=== PATIENT | female | born 1985 | race Hispanic/Latino ===

== ENCOUNTER 2018-11-17 12:12 | Outpatient (CLI) | payer OTHER | END 2018-11-17 12:13 | disposition home or self-care (01) | LOC: EKG 12:12 | PROVIDERS: ATTEND Student in an Organized Health Care Education/Training Program | DX: O16.4 Unspecified maternal hypertension, complicating childbirth (principal); Z13.6 Encounter for screening for cardiovascular disorders; I34.0 Nonrheumatic mitral (valve) insufficiency | CPT/HCPCS: 93005; 93010; 93306 ==

== ENCOUNTER 2018-12-10 11:10 | Emergency (ER) | payer OTHER ==
[2018-12-10] MEDS ORDERED: Acetaminophen 500 MG TAB ONE (12:56)
== END 2018-12-10 13:09 | disposition home or self-care (01) ==
LOC: ERS 11:10
DX: O99.89 Other specified diseases and conditions complicating pregnancy, childbirth and the puerperium (principal); S39.012A Strain of muscle, fascia and tendon of lower back, initial encounter; Z3A.23 23 weeks gestation of pregnancy
CPT/HCPCS: 99283

== ENCOUNTER 2019-03-16 18:29 | Inpatient (IN) | payer OTHER ==
[2019-03-16] MEDS ORDERED: Promethazine HCl 25 MG/ML VIAL IM PRN (19:19)
[2019-03-16] MEDS ORDERED: Ondansetron PF 4 MG/2 ML Vial IVP PRN (19:19)
[2019-03-16] MEDS ORDERED: Dextrose 5% in Water 1,000 ML IV PRN (19:19)
[2019-03-16] MEDS ORDERED: Carboprost 250 MCG/ML AMP IM PRN (19:19)
[2019-03-16] MEDS ORDERED: HYDROcodone/Acetaminophen 5/325 mg Tablet PO PRN (19:19)
[2019-03-16] MEDS ORDERED: Ibuprofen 800 MG TAB PO PRN (19:19)
[2019-03-16] MEDS ORDERED: Diphenoxylate HCl/Atropine Tablet PO PRN (19:19)
[2019-03-16] MEDS ORDERED: Zolpidem Tartrate 5 MG TAB PO PRN (19:19)
[2019-03-16] MEDS ORDERED: Dextrose 50% Abboject 50 ML SYRINGE SLOW IVP PRN (19:19)
[2019-03-16] MEDS ORDERED: NS / Oxytocin 40 units/1000ml 1,000 ML IV PRN (19:19)
[2019-03-16] MEDS ORDERED: hydrALAZINE 20 MG/ML VIAL SLOW IVP PRN (19:19)
[2019-03-16] MEDS ORDERED: Lidocaine 1% (PF) 30 ML VIAL SC PRN (19:19)
[2019-03-16] MEDS ORDERED: Acetaminophen 500 MG TAB PO PRN (19:19)
[2019-03-16] MEDS ORDERED: Butorphanol Tartrate 1 MG/ML VIAL SLOW IVP PRN (19:19)
[2019-03-16] MEDS ORDERED: Misoprostol 200 MCG TAB PR PRN (19:19)
[2019-03-16] MEDS ORDERED: Penicillin G Potassium 5 MILL.UNITS in Sodium Chloride 0.9% 100 ML IVPB SCH (19:30)
[2019-03-16] MEDS: Lactated Ringer's 1,000 ML IV SCH (20:00)
[2019-03-16 20:25] LABS: Hemoglobin 12.1 g/dL (12.0-16.0); Mean Corpuscular HGB CONC 35.9 g/dL (32.0-36.0); Mean Corpuscular Volume 83.6 fL (78.0-98.0); Mean Platelet Volume 10.7 fL (7.4-10.4); Platelet Count 172 thou/uL (130-400); RBC Distribution Width 12.4 % (11.5-14.5); Red Blood Cell (RBC) Count 4.04 mill/uL (4.20-5.40); White Blood Cell (WBC) Count 10.8 thou/uL (4.8-10.8)
[2019-03-16 20:44] LABS: ALT (SGPT) 17 U/L (8-55); AST (SGOT) 14 U/L (5-34); Albumin 3.3 g/dL (3.5-5.0); Alkaline Phosphatase 156 U/L (40-150); Anion Gap 13 mmol/L (10-20); BUN (Urea Nitrogen) 10 mg/dL (7.0-18.7); Bilirubin, Total 0.2 mg/dL (0.2-1.2); Calc. Creatinine Clearance 0 mL/min (70-130); Calcium 9.4 mg/dL (7.8-10.44); Carbon Dioxide 18 mmol/L (22-29); Chloride 107 mmol/L (98-107); Estimated GFR-MDRD 87; Globulin 4.2 g/dL (2.4-3.5); Glucose 112 mg/dL (70-105); Potassium 4.4 mmol/L (3.5-5.1); Protein, Total 7.5 g/dL (6.0-8.3); Sodium 134 mmol/L (136-145)
[2019-03-16 21:01] LABS: Syphilis Antibody Nonreactive (Nonreactive); Syphilis Antibody Index 0.09 S/CO (<1.00 Non-Reactive)
[2019-03-16] MEDS: Labetalol 100 MG TAB PO SCH (21:05)
[2019-03-16] MEDS: Insulin Regular 300 UNITS/3 ML VIAL SC PRN (21:11)
[2019-03-16 21:49] VITALS: BMI 42.0
[2019-03-16 23:47] LABS: Hep B Surf Ag Non-Reactive S/CO (NonReactive)
[2019-03-17] MEDS: Lactated Ringer's 1,000 ML IV SCH ×2 (00:23→15:41)
[2019-03-17] MEDS: Insulin Regular 300 UNITS/3 ML VIAL SC PRN ×4 (01:08→21:26)
[2019-03-17] MEDS ORDERED: Misoprostol 100 MCG TAB ONE (03:07)
[2019-03-17 03:13] LABS: Bacteria/HPF None Seen HPF (None Seen); Bilirubin Negative (Negative); Blood, Urine Negative (Negative); Clarity Clear (Clear); Glucose, Urine (Dipstick) 150 mg/dL (Negative); Leukocyte Negative Leu/uL (Negative); Nitrite Negative (Negative); Protein, Urine (Dipstick) Negative (Neg-Trace); RBC/HPF 0-3 HPF (0-3); Squamous Epithelial 0-3 HPF (0-3); Urobilinogen Normal mg/dL (Less than 2); WBC/HPF 0-3 HPF (0-3)
[2019-03-17] MEDS ORDERED: Betamet Acet/Betamet Na Ph 30 MG/5 ML VIAL IM SCH (04:00)
[2019-03-17] MEDS ORDERED: Levothyroxine Sodium 100 MCG TAB PO SCH (06:00)
[2019-03-17] MEDS ORDERED: hydrALAZINE 20 MG/ML VIAL ONE ×2 (06:02→20:22)
[2019-03-17] MEDS: NS w/ Oxytocin 10 units 500 ML IV SCH (07:50)
[2019-03-17] MEDS: Penicillin G 2.5 MILL.units 2.5 MILL.UNITS in Premix Bag 1 BAG IVPB SCH ×2 (08:45→12:20)
[2019-03-17] MEDS: Labetalol 100 MG TAB PO SCH ×2 (08:52→21:25)
--- NOTE | 2019-03-17 08:59 | PDOC.LDHP ---
Labor and Delivery H&P Chief complaint: scheduled induction, other (IUGR, IDDM, CHTN, hypothyroid) HPI: 33yo at 36w4d by LMP here for IOL 2/2 IUGR, uncontrolled CHTN, IDDM. Sono yesterday showed SIUP, EFW 2.6%ile, 4lb 12oz, essentially no growth since 33w. BPP 8/8. Ceph. No complaints, some back pain. No sx PIH. Current gestational age (weeks): 36 Due date: 04/10/19 Dating criteria: last menstrual period Grav: 1 Para: 0 Current complications: IUGR Abnormal US findings: Yes (IUGR, ceph, nl MALINA) Past Medical History: T2DM Current medications: pre- vitamins, other (NPH/regular insulin bid, labetalol 800 bid, valtrex 500 bid.) Previous surgical history: none Allergies/Adverse Reactions: Allergies Allergy/AdvReac Type Severity Reaction Status Date / Time ibuprofen Allergy Verified 03/16/19 21:55 Social history: none - Physical Exam Vital signs reviewed and normal: yes Abnormal vital signs: occ severe range bps s/p hydralazine x 1 overnight General: NAD Heart: RRR Lungs: CTAB Abdomen: gravid Extremeties: no edema FHT: category 1 [place] contractions every: 3-4min - Vaginal Exam cm dilated: 3 Effacement: 50% Station: -3 (arom clear, FSE and IUPC placed) - OB Labs Blood type: O RH: positive Antibody Screen: negative HIV: negative RPR: negative HEPSAg: negative GBS: positive Urine drug screen: negative Rubella: immune - Assessment L&D Assessment: medically indicated induction (IUGR, IDDM, CHTN r/o SIPIH, hypothyroid, obesity, AMA) - Plan Plan: admit to L&D, cervical ripening (dilapan placed overnight and removed this am, s/p cytotec x 1, will start pitocin now), labor augmentation if indicated, GBS antibiotic prophylaxis, informed consent obtained, magnesium for seizure prophylaxis (if needed for symptoms, abn labs or persistent severe bp.) , anesthesia consult for pain management
[2019-03-17] MEDS ORDERED: NPH, Human Insulin Isophane 300 UNIT/3 ML VIAL SC SCH (09:00)
[2019-03-17] MEDS ORDERED: Fentanyl 4 mcg/Bup 0.1% Cadd 100 ML ONE (10:11)
[2019-03-17] MEDS ORDERED: Lidocaine 1.5%/Epinephrine 1:200,000 5 ML AMPUL IJ ONE (10:36)
[2019-03-17] MEDS ORDERED: diphenhydrAMINE 50 MG/ML VIAL IVP PRN ×2 (11:19→18:15)
[2019-03-17] MEDS ORDERED: Promethazine HCl 25 MG/ML VIAL IM PRN ×4 (11:19→22:21)
[2019-03-17] MEDS ORDERED: Ondansetron PF 4 MG/2 ML Vial IVP PRN ×4 (11:19→22:21)
[2019-03-17] MEDS ORDERED: ePHEDrine/0.9% NaCl/PF SYRINGE 50 mg/10 ml SLOW IVP PRN (11:19)
[2019-03-17] MEDS ORDERED: Lactated Ringer's 500 ML IV PRN (11:19)
[2019-03-17] MEDS ORDERED: Naloxone HCl 0.4 mg/ml Vial IVP PRN ×6 (11:19→18:16)
[2019-03-17] MEDS ORDERED: Acetaminophen 325 MG TAB PO PRN ×2 (11:19→22:21)
[2019-03-17] MEDS ORDERED: Communication Order-Pharmacy FS SCH ×3 (11:30→18:30)
[2019-03-17] MEDS ORDERED: Fentanyl 4 mcg/Bupivacaine 0.1% Cassette 100 ML EPIDURAL SCH (11:30)
--- NOTE | 2019-03-17 12:55 | PDOC.LDPN ---
Labor & Delivery Progress Note - Subjective Subjective: comfortable - Objective Vital signs reviewed and normal: yes General: NAD Uterine fundus: non tender Dilation: 4 Effacement: 50% Station: -2 FHT: category 2, variable decelerations [place] contractions every: 5min Plan: labor augmentation, other (Blood sugar has been elevated 150-160 with NPH and SSI, will start insulin drip. )
[2019-03-17] MEDS ORDERED: HUMULIN R 100 UNITS in Sodium Chloride 0.9% 100 ML IVPB SCH (13:30)
[2019-03-17] MEDS ORDERED: Dextrose 5% in Water 1,000 ML IV PRN (13:30)
[2019-03-17] MEDS ORDERED: Ondansetron PF 4 MG/2 ML Vial ONE ×2 (17:12→17:51)
[2019-03-17] MEDS ORDERED: Lidocaine 2% PF 5 ML VIAL ONE (17:12)
--- NOTE | 2019-03-17 17:44 | PDOC.LDPN ---
Labor & Delivery Progress Note - Subjective Subjective: comfortable - Objective Vital signs reviewed and normal: yes General: NAD Uterine fundus: non tender Dilation: 4 Effacement: 75% Station: -2 FHT: category 2, variable decelerations, late decelerations [place] contractions every: 4-5min Resuscitative measures: maternal oxygen, maternal IV fluids, maternal position change Plan: resuscitative measures (pt has had 2 prolonged decels to 60-70s during the course of the day, 1 with an SVE, 1 with pitocin at 4mU/min. No that pit off O2on, positioning, IVF bolus baby is Cat 2 with occ lates and variables. Due to FTP and NRFHT remote from delivery dispo pt for PCS. R/B/A d/w pt, she understands and wishes to proceed. Last accucheck 125, on insulin drip)
[2019-03-17] MEDS ORDERED: Bicitra 30 ML UDCUP PO SCH (17:45)
[2019-03-17] MEDS ORDERED: Azithromycin 500 MG in Sodium Chloride 0.9% 250 ML 250 ML IVPB SCH (17:45)
[2019-03-17] MEDS ORDERED: CEFAZOLIN 2 GM in Premix Bag 1 BAG IVPB SCH (17:45)
[2019-03-17] MEDS ORDERED: Oxytocin 10 UNITS/ML VIAL ONE (17:51)
[2019-03-17] MEDS ORDERED: Lidocaine 2% 10 ML INJ ONE (17:51)
[2019-03-17] MEDS ORDERED: MORPHINE 5 MG/10 ML PF VIAL ONE (17:51)
[2019-03-17] MEDS ORDERED: Promethazine HCl 25 MG SUPP PR PRN ×2 (18:15→18:16)
[2019-03-17] MEDS ORDERED: Ketorolac Tromethamine 30 MG/ML VIAL IVP PRN (18:15)
[2019-03-17] MEDS ORDERED: Naloxone HCl 0.4 mg/ml Vial IV PRN ×2 (18:15→18:16)
[2019-03-17] MEDS ORDERED: L&D-Morphine 4 MG/ML VIAL SLOW IVP PRN (18:16)
[2019-03-17] MEDS ORDERED: HYDROmorphone 2 MG/ML VIAL SLOW IVP PRN (18:16)
[2019-03-17] MEDS ORDERED: Ondansetron HCl/PF 4 MG/2 ML Vial IVP PRN (18:16)
[2019-03-17] MEDS ORDERED: Meperidine HCl/PF 25 MG/ML VIAL SLOW IVP PRN (18:16)
[2019-03-17] MEDS ORDERED: Carboprost 250 MCG/ML AMP ONE (18:41)
--- NOTE | 2019-03-17 19:10 | PDOC.OPDEL ---
OB Operative/Delivery Note Delivery Dr/Surgeon: Dharmesh Assist: Maggi Pre-Delivery Diagnosis: non-reassuring tracing (, failure to progress, IUGR, IDDM, CHTN, 36w) Procedure/Post Delivery Dx: primary low transverse CS Weeks gestation: 36 Anesthesia: epidural - Findings A Sex: female - Additional Findings/Plan Placenta delivered: spontaneous findings: low transverse hysterotomy without extension, normal uterus, normal tubes, normal ovaries Estimated blood loss: 500cc Post delivery plan: routine recovery
[2019-03-17] MEDS ORDERED: Meperidine HCl/PF 25 MG/ML VIAL ONE (19:42)
[2019-03-17] MEDS ORDERED: Insulin Regular 300 UNITS/3 ML VIAL ONE (20:24)
[2019-03-17] MEDS ORDERED: Acetaminophen 1,000 MG in Premix Bag 1 BAG IVPB SCH (20:45)
[2019-03-17] MEDS ORDERED: diphenhydrAMINE 25 MG CAP PO PRN (22:21)
[2019-03-17] MEDS ORDERED: Lanolin Ointment 7 GM TUBE TOP PRN (22:21)
[2019-03-17] MEDS ORDERED: hydrALAZINE 20 MG/ML VIAL SLOW IVP PRN (22:21)
[2019-03-17] MEDS ORDERED: Bisacodyl 10 MG SUPP PR PRN (22:21)
[2019-03-17] MEDS ORDERED: Simethicone Chewable 80 MG TAB PO PRN (22:21)
[2019-03-17] MEDS ORDERED: Docusate Calcium (SURFAK) 240 MG CAP PO SCH (22:30)
[2019-03-17] MEDS ORDERED: Ferrous Sulfate 325 MG TAB PO SCH (22:30)
[2019-03-17] MEDS ORDERED: Labetalol 100 MG TAB PO SCH (22:30)
[2019-03-17] MEDS ORDERED: Sodium Chloride 0.9% 10 ML ONE (23:09)
[2019-03-17] MEDS: diphenhydrAMINE 50 MG/ML VIAL IVP PRN (23:23)
[2019-03-18] MEDS ORDERED: Dextrose 50% Abboject 50 ML SYRINGE SLOW IVP PRN (00:03)
[2019-03-18] MEDS ORDERED: Dextrose 5% in Water 1,000 ML IV PRN (00:03)
[2019-03-18] MEDS ORDERED: Insulin Regular 300 UNITS/3 ML VIAL SC PRN (00:03)
[2019-03-18] MEDS ORDERED: Sodium Chloride 0.9% 10 ML ONE ×2 (06:15→13:19)
[2019-03-18 06:16] LABS: Hemoglobin 10.5 g/dL (12.0-16.0); Mean Corpuscular HGB CONC 35.2 g/dL (32.0-36.0); Mean Corpuscular Hemoglobin 29.9 pg (27.0-31.0); Mean Platelet Volume 10.2 fL (7.4-10.4); Platelet Count 149 thou/uL (130-400); RBC Distribution Width 12.5 % (11.5-14.5); Red Blood Cell (RBC) Count 3.52 mill/uL (4.20-5.40); White Blood Cell (WBC) Count 13.9 thou/uL (4.8-10.8)
[2019-03-18] MEDS: HYDROcodone/Acetaminophen 5/325 mg Tablet PO PRN ×4 (06:37→23:57)
[2019-03-18] MEDS: diphenhydrAMINE 50 MG/ML VIAL IVP PRN (06:39)
[2019-03-18] MEDS: Levothyroxine Sodium 100 MCG TAB PO SCH (06:39)
--- NOTE | 2019-03-18 07:36 | PDOC.PP ---
Post Progress Note Post Day #: 1 Subjective: pod #1 s/p primary ltcs for nrfht. carrasco still in place PO intake tolerated: yes Ambulation: no Vital Signs (12 hours) Temp Pulse Resp BP BP Pulse Ox 03/18/19 04:30 97.9 F 83 17 122/58 L 03/18/19 01:00 97.9 F 81 17 129/63 03/18/19 00:25 92 03/17/19 23:30 98.2 F 80 17 130/62 03/17/19 22:30 94 L 03/17/19 22:21 97.8 F 92 17 147/64 H 95 03/17/19 22:20 97.8 F 92 16 147/64 H 03/17/19 21:25 69 170/79 H 03/17/19 20:50 69 170/79 H Weight Weight 268 lb - Physical Examination General: NAD Respiratory: non-labored breathing Abdominal: no distention, appropriately TTP Fundus firm & at: umbilicus Extremities: negative homans (B) Skin: CS incision dry & intact, no rash Neurological: no gross focal deficits Psychiatric: A&Ox3, normal affect Result Diagrams: 03/18/19 06:03 03/16/19 20:15 Additional Labs: Post Labs Blood Type O POSITIVE 03/16/19 21:07 Hep Bs Antigen Non-Reactive S/CO (NonReactive) 03/16/19 20:15 (1) Chronic hypertension Code(s): I10 - ESSENTIAL (PRIMARY) HYPERTENSION Status: Acute - Assessment/Plan POD#1 s/p 1ltcs. will continue routine in house care. CHTN on labetolol 800mg bid bdm on metformin 1000mg po bid
[2019-03-18] MEDS ORDERED: metFORMIN 500 MG TAB PO SCH (08:00)
[2019-03-18] MEDS: Docusate Calcium (SURFAK) 240 MG CAP PO SCH ×2 (08:51→22:36)
[2019-03-18] MEDS: metFORMIN 500 MG TAB PO SCH ×2 (08:52→19:06)
[2019-03-18] MEDS: Prenatal Vitamin 1 TAB PO SCH (08:53)
[2019-03-18] MEDS: Ferrous Sulfate 325 MG TAB PO SCH ×2 (08:54→17:10)
[2019-03-18] MEDS ORDERED: Adacel (T-DAP) 0.5 ML SYRINGE IM ONE (09:00)
[2019-03-18] MEDS: Labetalol 100 MG TAB PO SCH ×2 (09:06→21:50)
--- NOTE | 2019-03-18 10:58 | OP ---
DATE OF PROCEDURE: 03/17/2019 PREOPERATIVE DIAGNOSES: 1. Non-reassuring heart tones remote from delivery. 2. Failure to progress. 3. Intrauterine growth restriction. 4. Insulin-dependent diabetes, pregestational. 5. Chronic hypertension. 6. Obesity. 7. Thirty-six weeks and 4 days. POSTOPERATIVE DIAGNOSES: 1. Non-reassuring heart tones remote from delivery. 2. Failure to progress. 3. Intrauterine growth restriction. 4. Insulin-dependent diabetes, pregestational. 5. Chronic hypertension. 6. Obesity. 7. Thirty-six weeks and 4 days. PROCEDURE PERFORMED: Primary low-transverse section via Pfannenstiel skin incision. ANESTHESIA: Epidural. ESTIMATED BLOOD LOSS: 500 mL. FINDINGS: Female , cephalic presentation, clear amniotic fluid. Apgars and weight are currently pending. Uterine tone established with Pitocin and Hemabate x1, hysterotomy without extension, well reapproximated. Excellent hemostasis. Normal uterus, ovaries, and tubes bilaterally. COMPLICATIONS: None. DRAINS: Meredith catheter. PATHOLOGY: Placenta. DESCRIPTION OF PROCEDURE: The patient was taken to the operating room, where epidural anesthesia was found to be adequate. The patient was prepped and draped in a sterile fashion in the dorsal supine position with a leftward tilt. After ensuring adequacy of anesthesia, a Pfannenstiel skin incision was made and carried down to the underlying subcutaneous tissue with the Bovie. The fascia was nicked in the midline with the Bovie and carried laterally with the Preciado scissors. Some perforating rectus bleeders were encountered during this incision and these were hemostatic with the use of a hemostat and Bovie cautery. The superior aspect of the fascia was tented with two Annalise's and dissected off the rectus bluntly as well as with the Preciado's. The inferior aspect of the fascia was tented with two Annalise's and dissected off the rectus down to the pubic symphysis with the Preciado's. The peritoneum was grasped with 2 hemostats and incised with the Metzenbaum and the peritoneum was manually retracted. The Nathen O retractor was placed and the lower uterine segment was incised in a transverse fashion and extended with a Vu maneuver. The 's head was brought to the hysterotomy and delivered with fundal pressure followed by the body. The infant's cord was clamped and infant handed to awaiting Stephane team. Cord blood was obtained. The placenta was allowed to spontaneously deliver and sent for final pathology. The uterus was exteriorized, cleared of all clots and debris and noted to be boggy, Pitocin with infusion. At that time, Hemabate was given IM and uterine tone improved. Posterior cul-de-sac was left out and the hysterotomy was repaired with a 0 Monocryl in a running locking fashion with excellent hemostasis. The pelvis and pericolic gutters were irrigated and suctioned. The hysterotomy was again noted to be hemostatic. The Nathen O retractor was removed. The peritoneum was grasped with 3 Kellys and closed with a 2-0 chromic in a running fashion. The rectus muscles were carefully examined and noted to be hemostatic. The fascia was reapproximated with a #1 PDS x2 sutures with excellent reapproximation. The subcutaneous tissue was irrigated and cauterized of any bleeders and reapproximated in two layers of 2-0 plain gut in a running fashion. The skin was closed with 4-0 Monocryl in a subcuticular fashion. Dermabond was applied as well as a pressure dressing. The patient tolerated the procedure well. Sponge and needle counts correct x2. The patient was taken to recovery in stable condition. The patient received Ancef 2 g prior to the procedure and azithromycin in the recovery room. Job ID: [id number]
[2019-03-19] MEDS: Levothyroxine Sodium 100 MCG TAB PO SCH (06:10)
[2019-03-19] MEDS: HYDROcodone/Acetaminophen 5/325 mg Tablet PO PRN ×4 (06:12→22:42)
--- NOTE | 2019-03-19 06:36 | PDOC.PP ---
Post Progress Note Post Day #: 2 Subjective: Doing well...herminio po...she held last PM labetolol as she said it "made her dizzy " PO intake tolerated: yes Flatus: yes Ambulation: yes Vital Signs (12 hours) Temp Pulse Resp BP BP 03/19/19 04:05 98.4 F 85 16 130/63 03/19/19 00:28 98.8 F 86 16 129/57 L 03/18/19 21:50 84 135/68 03/18/19 20:30 97.6 F 83 16 135/68 03/18/19 19:48 84 Weight Weight 268 lb - Physical Examination General: NAD Cardiovascular: no m/r/g Respiratory: clear to auscultation bilaterally Abdominal: + bowel sounds, lochia, no distention, appropriately TTP Extremities: negative homans (B) Skin: CS incision dry & intact (incision stured and DB) Neurological: no gross focal deficits Psychiatric: A&Ox3, normal affect Result Diagrams: 03/18/19 06:03 03/16/19 20:15 Additional Labs: Post Labs Blood Type O POSITIVE 03/16/19 21:07 Hep Bs Antigen Non-Reactive S/CO (NonReactive) 03/16/19 20:15 (1) Diabetes Code(s): E11.9 - TYPE 2 DIABETES MELLITUS WITHOUT COMPLICATIONS Status: Acute Qualifiers: Diabetes mellitus type: type 2 (2) Chronic hypertension Code(s): I10 - ESSENTIAL (PRIMARY) HYPERTENSION Status: Acute (3) IUGR (intrauterine growth restriction) Status: Acute - Assessment/Plan POD2...IUGR,CHTN,Class B DM: Meds: labetolol 800BID; Metformin 1000BID Continue BP observation today....they are well controlled. Follow SSI. prob DC to home tomorrow
[2019-03-19] MEDS: Penicillin G 2.5 MILL.units 2.5 MILL.UNITS in Premix Bag 1 BAG IVPB SCH ×2 (07:13→07:14)
[2019-03-19] MEDS: NS w/ Oxytocin 10 units 500 ML IV SCH (07:14)
[2019-03-19] MEDS: Lactated Ringer's 1,000 ML IV SCH (07:14)
[2019-03-19] MEDS: Ferrous Sulfate 325 MG TAB PO SCH ×2 (07:22→15:54)
[2019-03-19] MEDS: Prenatal Vitamin 1 TAB PO SCH (08:11)
[2019-03-19] MEDS: Docusate Calcium (SURFAK) 240 MG CAP PO SCH ×2 (08:11→22:48)
[2019-03-19] MEDS: Labetalol 100 MG TAB PO SCH ×2 (08:12→22:46)
[2019-03-19] MEDS: metFORMIN 500 MG TAB PO SCH ×2 (08:12→17:05)
--- NOTE | 2019-03-19 21:10 | PDOC.EVN ---
Event Note - Event Note Event Note: Pt shared concern about the dose of labetalol 800bid. She felt bad with the morning dose. She refused the dose last night and had a severe range bp this am. After some discussion we have agreed to change dose to 400tid and monitor.
[2019-03-20] MEDS: Levothyroxine Sodium 100 MCG TAB PO SCH (05:16)
[2019-03-20] MEDS: Prenatal Vitamin 1 TAB PO SCH (08:24)
[2019-03-20] MEDS: Labetalol 100 MG TAB PO SCH ×3 (08:24→22:15)
[2019-03-20] MEDS: Docusate Calcium (SURFAK) 240 MG CAP PO SCH ×2 (08:24→22:12)
[2019-03-20] MEDS: Ferrous Sulfate 325 MG TAB PO SCH ×2 (08:25→17:58)
[2019-03-20] MEDS: metFORMIN 500 MG TAB PO SCH ×2 (10:08→20:12)
[2019-03-20] MEDS: HYDROcodone/Acetaminophen 5/325 mg Tablet PO PRN ×3 (10:11→22:13)
--- NOTE | 2019-03-20 13:08 | PDOC.PP ---
Post Progress Note Post Day #: 3 PO intake tolerated: yes Flatus: yes Ambulation: yes Vital Signs (12 hours) Temp Pulse Resp BP Pulse Ox 03/20/19 11:56 98.4 F 87 20 147/71 H 03/20/19 11:44 98.4 F 98 20 97/56 L 03/20/19 08:24 78 03/20/19 08:20 96 03/20/19 07:57 98.4 F 78 20 166/78 H 96 03/20/19 05:18 98.0 F 80 14 145/77 H Weight Weight 268 lb - Physical Examination General: NAD Respiratory: non-labored breathing Abdominal: no distention, appropriately TTP Fundus firm & at: umb-2 Skin: CS incision dry & intact, no rash Neurological: no gross focal deficits Psychiatric: normal affect Result Diagrams: 03/18/19 06:03 03/16/19 20:15 Additional Labs: Post Labs Blood Type O POSITIVE 03/16/19 21:07 Hep Bs Antigen Non-Reactive S/CO (NonReactive) 03/16/19 20:15 - Assessment/Plan POD3 s/p PCS for NRFHT at 36w 2/2 IUGR, with CHTN, T2DM VSSAF CHTN- BP mostly mild, occ severe prior to am dose of med. Switched to labetalol 400tid, will cont with hold parameters prn. No sx PIH, labs nl T2DM- restarted on metformin bid, good BG Met all postop milestones, pain controlled Breastpumping, in NICU Rh pos, RImm Cont postop care, DC tomorrow.
[2019-03-21] MEDS: Levothyroxine Sodium 100 MCG TAB PO SCH (05:50)
[2019-03-21] MEDS: Prenatal Vitamin 1 TAB PO SCH (08:18)
[2019-03-21] MEDS: Labetalol 100 MG TAB PO SCH ×2 (08:18→15:33)
[2019-03-21] MEDS: metFORMIN 500 MG TAB PO SCH (08:18)
[2019-03-21] MEDS: Ferrous Sulfate 325 MG TAB PO SCH (08:19)
[2019-03-21] MEDS: Docusate Calcium (SURFAK) 240 MG CAP PO SCH (08:19)
--- NOTE | 2019-03-21 08:26 | PDOC.PP ---
Post Progress Note Post Day #: 4 Subjective: Pt is doing well. Pain well controlled. She has noted improved latching with breast feeding. No bleeding at this time. She is eating and drinking normally and passing gas. No CP or SOB. PO intake tolerated: yes Flatus: yes Ambulation: yes Vital Signs (12 hours) Temp Pulse Resp BP 03/21/19 08:18 87 03/21/19 05:52 97.8 F 87 16 131/63 03/20/19 22:15 91 Weight Weight 268 lb - Physical Examination General: NAD Abdominal: + bowel sounds, no distention, appropriately TTP Skin: CS incision dry & intact, no rash Neurological: no gross focal deficits Psychiatric: A&Ox3, normal affect Result Diagrams: 03/18/19 06:03 03/16/19 20:15 Additional Labs: Post Labs Blood Type O POSITIVE 03/16/19 21:07 Hep Bs Antigen Non-Reactive S/CO (NonReactive) 03/16/19 20:15 - Assessment/Plan POD4 s/p PCS for NRFHT at 36w 2/2 IUGR, with CHTN, T2DM VSSAF CHTN- BP controlled at this time on labetolol. Will plan to continue at d/c. PT tolerating well. T2DM- Pt has been restarted on metformin. BS good this am. Will continue up d/ c. Pt has home accucheck monitor. Met all postop milestones, pain controlled Baby latched on with this am. Sh is also breastpumping, infant in NICU Rh pos, RImm Home care instructions discussed with plan for d/c this am. PT will follow up in office in the next 2 weeks for blood pressure check and routine 6 week pp visit.
[2019-03-21 08:37] VITALS: TEMP 98.4
[2019-03-21] MEDS: HYDROcodone/Acetaminophen 5/325 mg Tablet PO PRN (09:56)
[2019-03-21 11:37] VITALS: BP 117/59
== END 2019-03-21 15:35 | disposition home or self-care (01) | DRG 786 ==
LOC: L&D 18:29 → 3SW 03-17 22:01
PROVIDERS: ADMIT Student in an Organized Health Care Education/Training Program; ATTEND Student in an Organized Health Care Education/Training Program
PROC: 10D00Z1 Extraction of Products of Conception, Low, Open Approach (ICD-10-PCS; principal; 2019-03-17)
PROC: 10907ZC Drainage of Amniotic Fluid, Therapeutic from Products of Conception, Via Natural or Artificial Opening (ICD-10-PCS; 2019-03-17)
PROC: 3E0P7VZ Introduction of Hormone into Female Reproductive, Via Natural or Artificial Opening (ICD-10-PCS; 2019-03-17)
PROC: 3E033VJ Introduction of Other Hormone into Peripheral Vein, Percutaneous Approach (ICD-10-PCS; 2019-03-17)
DX: O36.5930 Maternal care for other known or suspected poor fetal growth, third trimester, not applicable or unspecified (principal); O24.12 Pre-existing type 2 diabetes mellitus, in childbirth; O10.02 Pre-existing essential hypertension complicating childbirth; O76 Abnormality in fetal heart rate and rhythm complicating labor and delivery; E11.9 Type 2 diabetes mellitus without complications; O99.284 Endocrine, nutritional and metabolic diseases complicating childbirth; E03.9 Hypothyroidism, unspecified; O99.214 Obesity complicating childbirth; E66.9 Obesity, unspecified; O99.824 Streptococcus B carrier state complicating childbirth; O61.0 Failed medical induction of labor; Z3A.36 36 weeks gestation of pregnancy; Z37.0 Single live birth
CPT/HCPCS: 36415; 36416; 51702; 80053; 81001; 85027; 86780; 86850; 86900; 86901; 87340; 88307; J0131; J0360; J0690; J0702; J1200; J1815; J2001; J2175; J2274; J2405; J2540; J2590; J3490

== ENCOUNTER 2019-12-11 15:57 | Outpatient (CLI) | payer BC, OTHER ==
--- NOTE | 2019-12-11 16:40 | ULT ---
ULTRASOUND RIGHT BREAST: History: Pain Comparison: None FINDINGS: Multi grayscale evaluation of the right breast as performed. There is no abnormal mass appreciated. N o architectural distortion. IMPRESSION: BIRADS category 0 - incomplete. Need additional imaging evaluation. Although there is no abnormality seen on the ultrasound, a bilateral diagnostic mammogram is recommended if patient continues to have pain or palpable abnormality.
== END 2019-12-11 15:58 | disposition home or self-care (01) ==
LOC: BICULT 15:57
PROVIDERS: ATTEND Student in an Organized Health Care Education/Training Program
DX: N63.10 Unspecified lump in the right breast, unspecified quadrant (principal)

== ENCOUNTER 2020-01-24 17:07 | Emergency (ER) | payer BC, OTHER ==
[2020-01-25 15:09] LABS: SARS-CoV-2 MS2 Positive; SARS-CoV-2 N Gene Negative; SARS-CoV-2 S Gene Negative; SARS-CoV-2 orf1ab Negative
== END 2020-01-24 18:14 | disposition home or self-care (01) ==
LOC: ERS 17:07
DX: O21.2 Late vomiting of pregnancy (principal); O24.113 Pre-existing type 2 diabetes mellitus, in pregnancy, third trimester; E11.9 Type 2 diabetes mellitus without complications; O10.913 Unspecified pre-existing hypertension complicating pregnancy, third trimester; Z79.4 Long term (current) use of insulin; Z79.899 Other long term (current) drug therapy; Z20.828 Contact with and (suspected) exposure to other viral communicable diseases; Z3A.32 32 weeks gestation of pregnancy
CPT/HCPCS: 87635; 99283; U0003

== ENCOUNTER 2020-01-31 16:38 | Inpatient (IN) | payer BC, OTHER ==
[2020-01-31 17:12] VITALS: BMI 41.3
[2020-01-31] MEDS ORDERED: hydrALAZINE 20 MG/ML VIAL SLOW IVP PRN (17:50)
[2020-01-31] MEDS ORDERED: Ondansetron PF 4 MG/2 ML Vial IVP PRN ×2 (17:50→21:27)
[2020-01-31] MEDS ORDERED: Promethazine HCl 25 MG/ML VIAL IM PRN ×2 (17:50→21:27)
[2020-01-31] MEDS ORDERED: Lactated Ringer's 1,000 ML IV SCH (18:00)
[2020-01-31] MEDS ORDERED: Bicitra 30 ML UDCUP PO SCH (18:00)
[2020-01-31] MEDS ORDERED: CEFAZOLIN 2 GM in Premix Bag 1 BAG IVPB SCH (18:00)
[2020-01-31 18:12] LABS: Hemoglobin 10.2 g/dL (12.0-16.0); Mean Corpuscular HGB CONC 34.1 g/dL (32.0-36.0); Mean Corpuscular Volume 79.3 fL (78.0-98.0); Platelet Count 189 thou/uL (130-400); RBC Distribution Width 13.7 % (11.5-14.5); Red Blood Cell (RBC) Count 3.79 mill/uL (4.20-5.40); White Blood Cell (WBC) Count 5.4 thou/uL (4.8-10.8)
[2020-01-31 18:54] LABS: Syphilis Antibody Nonreactive (Nonreactive); Syphilis Antibody Index 0.04 S/CO (<1.00 Non-Reactive)
[2020-01-31 18:54] LABS: HBSAg Index 0.16 S/CO (0-0.99); Hep B Surf Ag Non-Reactive S/CO (NonReactive)
[2020-01-31 19:24] LABS: Amphetamine Not Detected (NotDetected); Barbiturates Screen Not Detected (NotDetected); Benzodiazepine Screen Not Detected (NotDetected); Cocaine Metabolite Screen Not Detected (NotDetected); Medtox Control Line Valid? VALID (VALID); Medtox Reader # READER 1; Methadone Not Detected (NotDetected); Methamphetamine Not Detected (NotDetected); Opiate Screen Not Detected (NotDetected); Oxycodone Screen Not Detected (NotDetected); Phencyclidine (PCP) Not Detected (NotDetected); THC/Cannabinoid Screen Not Detected (NotDetected); Tricyclic Screen Not Detected (NotDetected)
[2020-01-31] MEDS ORDERED: MORPHINE 5 MG/10 ML PF VIAL ONE (19:26)
[2020-01-31] MEDS ORDERED: PHENYLEPHRINE-NS 100 MCG/ML 10 ML SYRINGE ONE (19:27)
[2020-01-31] MEDS ORDERED: Oxytocin 10 UNITS/ML VIAL ONE (19:27)
[2020-01-31] MEDS ORDERED: Ondansetron PF 4 MG/2 ML Vial ONE (19:27)
[2020-01-31] MEDS ORDERED: EPHEDRINE 25 MG/5 ML SYRINGE ONE (19:27)
[2020-01-31] MEDS ORDERED: Ketorolac Tromethamine 30 MG/ML VIAL ONE (19:27)
--- NOTE | 2020-01-31 19:42 | PDOC.LDHP ---
Labor and Delivery H&P Chief complaint: other (IUGR) HPI: 34 y/o at 33w2d, patient of Dr. Barroso, sent from clinic for IUGR, reverse end diastolic flow. Patient with IDDM, CHTN. Was tested for COVID last week for respiratory symptoms but reportedly has new onset diarrhea. Still has cough. Denies VB, LOF, ctx, or other concerns. ROS neg for HEENT, cv, pulm, gi, gu, neuro, psych, skin, musculoskeletal or consitutional symptoms other than mentioned above. OB History Details: 1 prior LTCS for IUGR, failed induction Current complications: pregestational diabetes, hypertension, IUGR Past Medical History: Insulin dependent diabetes mellitus CHTN hypothyroidism Current medications: pre- vitamins, other (metformin, levothyroxine, labetalol, NPH/regular) Previous surgical history: low tranverse CS Allergies/Adverse Reactions: Allergies Allergy/AdvReac Type Severity Reaction Status Date / Time aspirin Allergy Mild Hives Verified 01/31/20 16:59 ibuprofen Allergy Mild Hives Verified 01/31/20 16:59 Social history: none - Physical Exam Vital signs reviewed and normal: yes (mild range BPs) General: NAD, resting Lungs: nonlabored breathing Abdomen: gravid Extremeties: no edema FHT: category 2 (130s, mod variability, prolonged deceleration) [place] contractions every: none - OB Labs Blood type: O RH: positive Antibody Screen: negative HIV: negative RPR: negative HEPSAg: negative GBS: unknown Urine drug screen: negative Rubella: immune - Assessment Medically indicated repeat C/S - Plan Plan: admit to L&D, informed consent obtained, anesthesia consult for pain management -: Received betamethasone prior to arrival Per report from RN, has recent onset of diarrhea. Will recheck COVID, as it has been a week since previous test (negative). Will proceed with repeat LTCS for nonreassuring status. NICU, anesthesia notified.
[2020-01-31 19:56] LABS: ALT (SGPT) 12 U/L (8-55); AST (SGOT) 11 U/L (5-34); Albumin 3.1 g/dL (3.5-5.0); Alkaline Phosphatase 126 U/L (40-110); Anion Gap 15 mmol/L (10-20); BUN (Urea Nitrogen) 7 mg/dL (7.0-18.7); Bilirubin, Total 0.3 mg/dL (0.2-1.2); Calc. Creatinine Clearance 213 mL/min (70-130); Calcium 8.4 mg/dL (7.8-10.44); Carbon Dioxide 19 mmol/L (22-29); Chloride 107 mmol/L (98-107); Estimated GFR-MDRD Greater than 90; Globulin 3.4 g/dL (2.4-3.5); Glucose 119 mg/dL (70-105); Protein, Total 6.5 g/dL (6.0-8.3); Sodium 137 mmol/L (136-145)
[2020-01-31] MEDS ORDERED: Fentanyl 100 MCG/2 ML VIAL ONE (20:36)
[2020-01-31] MEDS ORDERED: Promethazine HCl 25 MG SUPP PR PRN (21:27)
[2020-01-31] MEDS ORDERED: Ketorolac Tromethamine 30 MG/ML VIAL IVP PRN (21:27)
[2020-01-31] MEDS ORDERED: Naloxone HCl 0.4 mg/ml Vial IVP PRN ×2 (21:27)
[2020-01-31] MEDS ORDERED: Naloxone HCl 0.4 mg/ml Vial IV PRN (21:27)
[2020-01-31] MEDS ORDERED: HYDROmorphone 2 MG/ML VIAL SLOW IVP PRN (21:28)
[2020-01-31] MEDS ORDERED: L&D-Morphine 4 MG/ML VIAL SLOW IVP PRN (21:28)
[2020-01-31] MEDS ORDERED: Meperidine HCl/PF 25 MG/ML VIAL SLOW IVP PRN (21:28)
[2020-01-31] MEDS ORDERED: Communication Order-Pharmacy FS SCH (21:30)
[2020-01-31] MEDS ORDERED: NS / Oxytocin 40 units/1000ml 1,000 ML ONE (21:43)
[2020-01-31] MEDS ORDERED: Labetalol HCl 100 MG/20 ML VIAL ONE (23:01)
[2020-01-31] MEDS ORDERED: Labetalol HCl 100 MG/20 ML VIAL SLOW IVP SCH (23:15)
[2020-02-01] MEDS ORDERED: Lanolin Ointment 7 GM TUBE TOP PRN (00:21)
[2020-02-01] MEDS ORDERED: HYDROcodone/Acetaminophen 5/325 mg Tablet PO PRN (00:21)
[2020-02-01] MEDS ORDERED: Bisacodyl 10 MG SUPP PR PRN (00:21)
[2020-02-01] MEDS ORDERED: Ondansetron PF 4 MG/2 ML Vial IVP PRN (00:21)
[2020-02-01] MEDS ORDERED: Dextrose 5% in Water 1,000 ML IV PRN (00:21)
[2020-02-01] MEDS ORDERED: Adacel (T-DAP) 0.5 ML SYRINGE IM ONE (00:21)
[2020-02-01] MEDS ORDERED: Promethazine HCl 25 MG/ML VIAL IM PRN (00:21)
[2020-02-01] MEDS ORDERED: Acetaminophen 500 MG TAB PO PRN (00:21)
[2020-02-01] MEDS ORDERED: Dextrose 50% Abboject 50 ML SYRINGE SLOW IVP PRN (00:21)
[2020-02-01] MEDS ORDERED: hydrALAZINE 20 MG/ML VIAL SLOW IVP PRN (00:21)
[2020-02-01] MEDS ORDERED: Simethicone Chewable 80 MG TAB PO PRN (00:21)
[2020-02-01] MEDS ORDERED: Ferrous Sulfate 325 MG TAB PO SCH (00:30)
[2020-02-01] MEDS ORDERED: Docusate Calcium (SURFAK) 240 MG CAP PO SCH (00:30)
[2020-02-01] MEDS ORDERED: Labetalol 100 MG TAB PO SCH (00:45)
[2020-02-01] MEDS: diphenhydrAMINE 50 MG/ML VIAL IVP PRN ×2 (00:51→05:46)
[2020-02-01] MEDS ORDERED: Ibuprofen 800 MG TAB PO SCH (01:00)
[2020-02-01] MEDS ORDERED: Fentanyl 100 MCG/2 ML VIAL SLOW IVP PRN ×2 (01:21→02:07)
[2020-02-01] MEDS: Insulin Regular 300 UNITS/3 ML VIAL SC PRN ×3 (02:14→13:19)
--- NOTE | 2020-02-01 06:41 | PDOC.OPDEL ---
OB Operative/Delivery Note Delivery Dr/Surgeon: Dharmseh Assist: Randa Pre-Delivery Diagnosis: non-reassuring tracing (, IUGR with REDV, CHTN, IDDM, Hypothyroid, obesity, prior CS x 1) Procedure/Post Delivery Dx: repeat low transverse CS Weeks gestation: 33 Anesthesia: spinal - Findings A Sex: male - Additional Findings/Plan Placenta delivered: spontaneous findings: low transverse hysterotomy without extension, normal uterus, normal tubes, normal ovaries, other (several small < 1cm fibroids subserosal and intramural) Estimated blood loss: 500 Post delivery plan: routine recovery
--- NOTE | 2020-02-01 07:32 | OP ---
DATE OF PROCEDURE: 01/31/2020 ADDENDUM: I was present and scrubbed to assist the uncomplicated repeat low-transverse with Dr. Jewell Barroso. Please see her note for full details. Job ID: [id number]
[2020-02-01 08:26] LABS: Mean Corpuscular HGB CONC 31.4 g/dL (32.0-36.0); Mean Corpuscular Hemoglobin 25.1 pg (27.0-31.0); Mean Corpuscular Volume 79.8 fL (78.0-98.0); Mean Platelet Volume 10.2 fL (7.4-10.4); Platelet Count 169 thou/uL (130-400); RBC Distribution Width 13.8 % (11.5-14.5); Red Blood Cell (RBC) Count 3.58 mill/uL (4.20-5.40); White Blood Cell (WBC) Count 8.7 thou/uL (4.8-10.8)
[2020-02-01] MEDS: Prenatal Vitamin 1 TAB PO SCH (09:57)
[2020-02-01] MEDS: Labetalol 100 MG TAB PO SCH ×2 (09:57→23:57)
[2020-02-01] MEDS: Docusate Calcium (SURFAK) 240 MG CAP PO SCH ×2 (09:57→18:24)
--- NOTE | 2020-02-01 12:46 | PDOC.PP ---
Post Progress Note Post Day #: 1 PO intake tolerated: yes Flatus: yes Ambulation: yes Vital Signs (12 hours) Temp Pulse Resp BP BP Pulse Ox 02/01/20 10:00 97.1 F L 75 20 145/76 H 02/01/20 09:57 73 145/76 H 02/01/20 04:15 98.3 F 73 16 154/81 H 98 02/01/20 03:25 65 02/01/20 03:24 65 02/01/20 02:40 97.8 F 65 16 138/75 97 02/01/20 01:40 97.8 F 67 14 144/70 H 98 Weight Weight 264 lb - Physical Examination General: NAD Respiratory: non-labored breathing Abdominal: no distention, appropriately TTP Fundus firm & at: umb Skin: CS incision dry & intact Neurological: no gross focal deficits Psychiatric: normal affect Result Diagrams: 02/01/20 07:57 01/31/20 18:00 Additional Labs: Post Labs Blood Type O POSITIVE 01/31/20 18:00 Hep Bs Antigen Non-Reactive S/CO (NonReactive) 01/31/20 18:00 - Assessment/Plan POD1 s/p RCS at 33w for IUGR with REDV, NRFHT, CHTN, IDDM, hypothyroid, prior cs x 1 VSS CHTN- restarted on home labetalol, BP mild, no sx PIH, labs negative IDDM- restart metformin now that patient is eating, cont SSI Postop- doing well, pain controlled, voiding Hypothyroid- cont levothyroxine PUI- COVID pending, sx have improved since delivery Baby in NICU Cont postop care.
[2020-02-01] MEDS: HYDROcodone/Acetaminophen 5/325 mg Tablet PO PRN ×2 (13:13→19:37)
[2020-02-01] MEDS: diphenhydrAMINE 25 MG CAP PO PRN ×2 (13:13→19:37)
[2020-02-01 14:32] LABS: SARS-CoV-2 MS2 Positive; SARS-CoV-2 N Gene Negative; SARS-CoV-2 S Gene Negative; SARS-CoV-2 orf1ab Negative
[2020-02-01] MEDS: Ferrous Sulfate 325 MG TAB PO SCH ×2 (16:50→17:59)
[2020-02-01] MEDS: metFORMIN 500 MG TAB PO SCH (17:59)
[2020-02-02] MEDS: HYDROcodone/Acetaminophen 5/325 mg Tablet PO PRN ×2 (02:06→10:13)
[2020-02-02] MEDS: Prenatal Vitamin 1 TAB PO SCH (08:15)
[2020-02-02] MEDS: Ferrous Sulfate 325 MG TAB PO SCH (08:16)
[2020-02-02] MEDS: Docusate Calcium (SURFAK) 240 MG CAP PO SCH (08:16)
[2020-02-02] MEDS: Labetalol 100 MG TAB PO SCH (08:22)
[2020-02-02] MEDS: metFORMIN 500 MG TAB PO SCH (08:22)
--- NOTE | 2020-02-02 11:20 | PDOC.PP ---
Post Progress Note Post Day #: 2 Subjective: doing well, ambulating w ease to NICU, would like DC today, minimal pain PO intake tolerated: yes Flatus: yes Ambulation: yes Vital Signs (12 hours) Temp Pulse Resp BP Pulse Ox 02/02/20 08:22 86 02/02/20 08:08 98.5 F 86 20 158/77 H 99 02/02/20 03:55 98.5 F 79 18 139/66 02/02/20 00:00 97.1 F L 68 18 125/61 02/01/20 23:57 68 Weight Weight 264 lb - Physical Examination General: NAD Respiratory: non-labored breathing Abdominal: no distention Skin: CS incision dry & intact Neurological: no gross focal deficits Psychiatric: A&Ox3, normal affect Result Diagrams: 02/01/20 07:57 01/31/20 18:00 Additional Labs: Post Labs Blood Type O POSITIVE 01/31/20 18:00 Hep Bs Antigen Non-Reactive S/CO (NonReactive) 01/31/20 18:00 (1) delivery delivered Code(s): O82 - ENCOUNTER FOR DELIVERY WITHOUT INDICATION Status: Acute (2) IUGR (intrauterine growth restriction) Status: Acute (3) Pregestational diabetes mellitus, modified White class B Code(s): O24.319 - UNSP PRE-EXISTING DIABETES IN , UNSP TRIMESTER Status: Acute (4) Chronic hypertension Code(s): I10 - ESSENTIAL (PRIMARY) HYPERTENSION Status: Chronic - Assessment/Plan POD2 desires DC at home, will FU one week for BP and incision check.
[2020-02-02 11:43] VITALS: BP 122/65; TEMP 98
== END 2020-02-02 12:32 | disposition home or self-care (01) | DRG 786 ==
LOC: L&D/OP 16:38 → L&D 20:34 → 3SW 02-01 10:01 → 3SE 02-01 18:33
PROVIDERS: ADMIT Student in an Organized Health Care Education/Training Program; ATTEND Student in an Organized Health Care Education/Training Program
PROC: 10D00Z1 Extraction of Products of Conception, Low, Open Approach (ICD-10-PCS; principal; 2020-01-31)
DX: O36.5930 Maternal care for other known or suspected poor fetal growth, third trimester, not applicable or unspecified (principal); O24.12 Pre-existing type 2 diabetes mellitus, in childbirth; O10.02 Pre-existing essential hypertension complicating childbirth; O99.284 Endocrine, nutritional and metabolic diseases complicating childbirth; Z20.828 Contact with and (suspected) exposure to other viral communicable diseases; E03.9 Hypothyroidism, unspecified; O34.211 Maternal care for low transverse scar from previous cesarean delivery; O76 Abnormality in fetal heart rate and rhythm complicating labor and delivery; O99.214 Obesity complicating childbirth; E66.9 Obesity, unspecified; E11.9 Type 2 diabetes mellitus without complications; Z3A.33 33 weeks gestation of pregnancy; Z37.0 Single live birth; Z79.4 Long term (current) use of insulin; Z88.5 Allergy status to narcotic agent
CPT/HCPCS: 36415; 36416; 80053; 80306; 85027; 86780; 86850; 86900; 86901; 87340; 87635; J0360; J0690; J1200; J1815; J1885; J2274; J2405; J2550; J2590; J3010; Q0163; U0003